=== PATIENT | male | born 1970 | race Hispanic/Latino ===

== ENCOUNTER 2023-03-07 19:11 | Inpatient (IN) | payer SELFPAY ==
[~2023-03-07 19:11] MED LIST: Iopamidol 300 61% 100 ML VIAL FS ONE
[2023-03-07 20:13] LABS: #Eosinphils 0.1 10x3/uL (0.0-0.5); #Monocytes 0.5 10x3/uL (0.0-1.1); #Neutrophils 3.2 10x3/uL (1.5-8.4); %Basophils 0.2 % (0.0-2.0); %Eosinophils 1.7 % (0.0-6.0); %Lymphocytes 20.4 % (18.0-47.0); %Monocytes 9.9 % (0.0-10.0); %Neutrophils 66.5 % (40.0-75.0); Hemoglobin 12.2 g/dL (13.5-17.5); Mean Corpuscular HGB CONC 34.4 g/dL (32.0-36.0); Mean Corpuscular Hemoglobin 29.1 pg (27.0-33.0); Mean Corpuscular Volume 84.7 fl (81.2-95.1); Mean Platelet Volume 11.6 fl (7.4-10.4); Platelet Count 83 10x3/uL (150-450); RBC Distribution Width 12.8 % (11.5-14.5); Red Blood Cell (RBC) Count 4.19 10x6/uL (4.32-5.72); White Blood Cell (WBC) Count 4.8 10x3/uL (3.5-10.5)
[2023-03-07 20:17] LABS: ALT (SGPT) 22 U/L (8-55); AST (SGOT) 19 U/L (5-34); Albumin 2.8 g/dL (3.5-5.0); Alkaline Phosphatase 142 U/L (40-110); Anion Gap 14 mmol/L (10-20); BUN (Urea Nitrogen) 7 mg/dL (8.4-25.7); Bilirubin, Total 1.8 mg/dL (0.2-1.2); Calc. Creatinine Clearance 0 mL/min (70-130); Calcium 8.2 mg/dL (7.8-10.44); Carbon Dioxide 18 mmol/L (22-29); Chloride 101 mmol/L (98-107); Estimated GFR 113; Globulin 3.4 g/dL (2.4-3.5); Potassium 4.2 mmol/L (3.5-5.1); Protein, Total 6.2 g/dL (6.0-8.3); Sodium 129 mmol/L (136-145)
[2023-03-07] MEDS ORDERED: Morphine 4 MG/ML VIAL ONE (20:17)
[2023-03-07] MEDS ORDERED: Cefepime 2 GM VIAL ONE (20:18)
[2023-03-07] MEDS ORDERED: Vancomycin 1 GM VIAL ONE (20:18)
[2023-03-07 20:20] LABS: Glucose 511 mg/dL (70-105)
[2023-03-07] MEDS ORDERED: Lidocaine 1% w/Epinephrine 1:100K 20 ML VIAL FS SCH (20:30)
[2023-03-07 20:51] LABS: Large Platelets SLIGHT (None Seen); Platelet Adequacy Comment Appears Decreased
[2023-03-07 20:52] LABS: RBC Morph Comment Within Normal Limits
[2023-03-07 21:05] LABS: Actual Bicarbonate (HCO3v) 23.6 mEq/L (22-28); Base Excess -0.4 mEq/L (-2 - +2); Calcium, Ionized (venous) 1.05 mmol/L (1.16-1.32); Chloride (VBG) 103 mmol/L (98-106); Hematocrit-VBG 39 % (42.0-52.0); Hemoglobin (Hb) 13.4 g/dL (13.1-17.2); Potassium (VBG) 3.83 mmol/L (3.70-5.30); Puncture Site Other Site; RapidComm Collect By CBN; Sodium 134.1 mmol/L (133-146); pH (venous) 7.424 (7.32-7.43)
[2023-03-07] MEDS ORDERED: Boostrix 0.5 ML (Tdap) VIAL (>/=7 yrs of age) ONE (21:32)
[2023-03-07] MEDS ORDERED: HumaLOG 300 UNITS/3 ML VIAL SC SCH (21:45)
[2023-03-07] MEDS ORDERED: Calcium Carbonate 500 MG ChewTAB PO PRN (21:52)
[2023-03-07] MEDS ORDERED: Ondansetron PF 4 MG/2 ML Vial IVP PRN (21:52)
[2023-03-07] MEDS ORDERED: Senokot S 8.6-50 MG TAB PO PRN (21:52)
[2023-03-07] MEDS ORDERED: Dextrose 5% in Water 1,000 ML IV PRN (21:52)
[2023-03-07] MEDS ORDERED: Glucagon 1 MG/ML KIT IM PRN (21:52)
[2023-03-07] MEDS ORDERED: Guaifenesin DM 100-10/5 ML UDCUP PO PRN (21:52)
[2023-03-07] MEDS ORDERED: Dextrose 50% Abboject 50 ML SYRINGE SLOW IVP PRN (21:52)
[2023-03-07] MEDS ORDERED: Acetaminophen 325 MG TAB PO PRN (21:52)
[2023-03-08] MEDS: Lactated Ringer's 1,000 ML IV SCH ×4 (02:15→22:32)
[2023-03-08 05:55] LABS: #Eosinphils 0.1 10x3/uL (0.0-0.5); #Monocytes 0.5 10x3/uL (0.0-1.1); #Neutrophils 3.2 10x3/uL (1.5-8.4); %Basophils 0.2 % (0.0-2.0); %Lymphocytes 25.2 % (18.0-47.0); %Neutrophils 63.2 % (40.0-75.0); Hemoglobin 11.9 g/dL (13.5-17.5); Mean Corpuscular HGB CONC 34.7 g/dL (32.0-36.0); Mean Corpuscular Hemoglobin 29.4 pg (27.0-33.0); Mean Corpuscular Volume 84.7 fl (81.2-95.1); Mean Platelet Volume 10.5 fl (7.4-10.4); Platelet Count 97 10x3/uL (150-450); RBC Distribution Width 12.9 % (11.5-14.5); Red Blood Cell (RBC) Count 4.05 10x6/uL (4.32-5.72); White Blood Cell (WBC) Count 5.1 10x3/uL (3.5-10.5)
[2023-03-08 05:56] LABS: Anion Gap 14 mmol/L (10-20); BUN (Urea Nitrogen) 6 mg/dL (8.4-25.7); CK (CPK) 36 U/L (30-200); Calc. Creatinine Clearance 123 mL/min (70-130); Calcium 7.7 mg/dL (7.8-10.44); Carbon Dioxide 22 mmol/L (22-29); Chloride 104 mmol/L (98-107); Estimated GFR 117; Glucose 177 mg/dL (70-105); Potassium 3.5 mmol/L (3.5-5.1); Sodium 136 mmol/L (136-145)
[2023-03-08 06:13] LABS: Platelet Adequacy Comment Appears Decreased; RBC Morph Comment Within Normal Limits
[2023-03-08] MEDS: HYDROcodone/Acetaminophen 5/325 mg Tablet PO PRN ×2 (07:12→22:12)
[2023-03-08] MEDS: Nicotine 14 MG PATCH TD SCH ×2 (07:19→22:40)
[2023-03-08] MEDS: metFORMIN 500 MG TAB PO SCH (08:51)
[2023-03-08] MEDS: Cefepime 1 GM in Sodium Chloride 0.9% 100 ML IVPB SCH ×2 (08:52→22:08)
[2023-03-08] MEDS: HumaLOG 300 UNITS/3 ML VIAL SC PRN ×3 (08:52→22:11)
[2023-03-08] MEDS ORDERED: Vancomycin 1 GM in Premix Bag 1 BAG IVPB SCH (09:00)
[2023-03-08] MEDS: Vancomycin HCl 1 GM in Sodium Chloride 0.9% 250 ML 250 ML IVPB SCH ×2 (09:00→22:09)
[2023-03-08 12:20] LABS: Hemoglobin A1c Greater than 14.0 % (4.0-6.0)
[2023-03-08] MEDS ORDERED: HYDROcodone/Acetaminophen 5/325 mg Tablet PO SCH (12:30)
[2023-03-09 04:39] LABS: Hemoglobin 11.8 g/dL (13.5-17.5); MDiff Complete? YES; Mean Corpuscular HGB CONC 33.7 g/dL (32.0-36.0); Mean Corpuscular Hemoglobin 28.5 pg (27.0-33.0); Mean Corpuscular Volume 84.5 fl (81.2-95.1); Mean Platelet Volume 10.3 fl (7.4-10.4); Platelet Count 93 10x3/uL (150-450); RBC Distribution Width 12.5 % (11.5-14.5); Red Blood Cell (RBC) Count 4.14 10x6/uL (4.32-5.72); White Blood Cell (WBC) Count 3.2 10x3/uL (3.5-10.5)
[2023-03-09 04:43] LABS: Anion Gap 13 mmol/L (10-20); BUN (Urea Nitrogen) 5 mg/dL (8.4-25.7); Calc. Creatinine Clearance 140 mL/min (70-130); Calcium 7.8 mg/dL (7.8-10.44); Carbon Dioxide 21 mmol/L (22-29); Chloride 109 mmol/L (98-107); Estimated GFR 122; Glucose 248 mg/dL (70-105); Potassium 3.6 mmol/L (3.5-5.1); Sodium 139 mmol/L (136-145)
[2023-03-09 06:19] LABS: Eosinophils 5 % (0-10); Lymphocytes 32 % (21-51); Monocytes 9 % (0-10); Neutrophil 47 % (42-75); Reactive Lymphocytes 7 % (0-10)
[2023-03-09 06:23] LABS: Hypochromia SLIGHT = 6-15 cells (100X) (0-5/hpf); Macrocytosis SLIGHT = 6-15 cells (100X) (0-5/hpf); Ovalocytes SLIGHT = 2-5 cells (100X) (0-1/hpf)
[2023-03-09 06:24] LABS: Platelet Adequacy Comment Appears Decreased
[2023-03-09] MEDS: Cefepime 1 GM in Sodium Chloride 0.9% 100 ML IVPB SCH ×2 (08:33→19:59)
[2023-03-09] MEDS: metFORMIN 500 MG TAB PO SCH (08:33)
[2023-03-09 08:35] LABS: Vancomycin, Trough 5.1 ug/mL
[2023-03-09] MEDS: Vancomycin HCl 1 GM in Sodium Chloride 0.9% 250 ML 250 ML IVPB SCH ×3 (08:39→17:20)
[2023-03-09] MEDS ORDERED: Lantus 1000 UNITS/10 ML VIAL SC SCH (09:00)
[2023-03-09] MEDS: HYDROcodone/Acetaminophen 5/325 mg Tablet PO PRN ×2 (10:45→19:58)
[2023-03-09] MEDS: HumaLOG 300 UNITS/3 ML VIAL SC PRN ×3 (12:00→22:12)
[2023-03-09] MEDS ORDERED: HYDROcodone/Acetaminophen 5/325 mg Tablet ONE (15:41)
[2023-03-09] MEDS: Nicotine 14 MG PATCH TD SCH (22:19)
[2023-03-10] MEDS: Vancomycin HCl 1 GM in Sodium Chloride 0.9% 250 ML 250 ML IVPB SCH ×2 (01:06→09:51)
[2023-03-10] MEDS: HYDROcodone/Acetaminophen 5/325 mg Tablet PO PRN (04:35)
[2023-03-10] MEDS: HumaLOG 300 UNITS/3 ML VIAL SC PRN ×5 (04:43→20:29)
[2023-03-10 05:26] LABS: #Eosinphils 0.1 10x3/uL (0.0-0.5); #Monocytes 0.4 10x3/uL (0.0-1.1); #Neutrophils 1.7 10x3/uL (1.5-8.4); %Basophils 0.6 % (0.0-2.0); %Eosinophils 3.5 % (0.0-6.0); %Lymphocytes 33.9 % (18.0-47.0); %Monocytes 11.2 % (0.0-10.0); %Neutrophils 50.2 % (40.0-75.0); Hemoglobin 12.4 g/dL (13.5-17.5); Mean Corpuscular HGB CONC 33.9 g/dL (32.0-36.0); Mean Corpuscular Volume 85.7 fl (81.2-95.1); Platelet Count 125 10x3/uL (150-450); Red Blood Cell (RBC) Count 4.27 10x6/uL (4.32-5.72); White Blood Cell (WBC) Count 3.4 10x3/uL (3.5-10.5)
[2023-03-10 05:38] LABS: Anion Gap 12 mmol/L (10-20); BUN (Urea Nitrogen) 6 mg/dL (8.4-25.7); Calc. Creatinine Clearance 123 mL/min (70-130); Calcium 8.2 mg/dL (7.8-10.44); Carbon Dioxide 23 mmol/L (22-29); Chloride 108 mmol/L (98-107); Estimated GFR 117; Glucose 256 mg/dL (70-105); Potassium 3.6 mmol/L (3.5-5.1); Sodium 139 mmol/L (136-145)
[2023-03-10] MEDS ORDERED: HumaLOG 300 UNITS/3 ML VIAL SC PRN (08:11)
[2023-03-10] MEDS: metFORMIN 500 MG TAB PO SCH (08:28)
[2023-03-10 08:29] LABS: Vancomycin, Trough 6.9 ug/mL
[2023-03-10] MEDS: Cefepime 1 GM in Sodium Chloride 0.9% 100 ML IVPB SCH ×2 (08:29→20:30)
[2023-03-10] MEDS: Lantus 1000 UNITS/10 ML VIAL SC SCH (08:30)
[2023-03-10 10:52] VITALS: BMI 21.9
[2023-03-10] MEDS: Clindamycin/D5W 600 MG in Premix Bag 1 BAG IVPB SCH ×2 (14:51→21:50)
[2023-03-10] MEDS: Nicotine 14 MG PATCH TD SCH (21:53)
[2023-03-11] MEDS: Clindamycin/D5W 600 MG in Premix Bag 1 BAG IVPB SCH ×2 (05:19→13:07)
[2023-03-11 06:55] LABS: Anion Gap 15 mmol/L (10-20); BUN (Urea Nitrogen) 8 mg/dL (8.4-25.7); Calc. Creatinine Clearance 123 mL/min (70-130); Calcium 8.5 mg/dL (7.8-10.44); Carbon Dioxide 21 mmol/L (22-29); Chloride 108 mmol/L (98-107); Estimated GFR 117; Glucose 152 mg/dL (70-105); Potassium 3.8 mmol/L (3.5-5.1); Sodium 140 mmol/L (136-145)
[2023-03-11 07:03] LABS: #Eosinphils 0.1 10x3/uL (0.0-0.5); #Monocytes 0.5 10x3/uL (0.0-1.1); %Basophils 0.5 % (0.0-2.0); %Eosinophils 2.7 % (0.0-6.0); %Lymphocytes 33.7 % (18.0-47.0); %Monocytes 12.8 % (0.0-10.0); %Neutrophils 50.1 % (40.0-75.0); Hemoglobin 12.8 g/dL (13.5-17.5); Mean Corpuscular HGB CONC 33.2 g/dL (32.0-36.0); Mean Corpuscular Hemoglobin 28.3 pg (27.0-33.0); Mean Corpuscular Volume 85.2 fl (81.2-95.1); Mean Platelet Volume 10.4 fl (7.4-10.4); Platelet Count 143 10x3/uL (150-450); RBC Distribution Width 12.9 % (11.5-14.5); Red Blood Cell (RBC) Count 4.52 10x6/uL (4.32-5.72); White Blood Cell (WBC) Count 4.1 10x3/uL (3.5-10.5)
[2023-03-11] MEDS: Lantus 1000 UNITS/10 ML VIAL SC SCH (08:43)
[2023-03-11] MEDS: metFORMIN 500 MG TAB PO SCH (08:44)
[2023-03-11] MEDS: Cefepime 1 GM in Sodium Chloride 0.9% 100 ML IVPB SCH (08:44)
[2023-03-11] MEDS: HumaLOG 300 UNITS/3 ML VIAL SC PRN (12:25)
[2023-03-11] MEDS: HYDROcodone/Acetaminophen 5/325 mg Tablet PO PRN (16:56)
[2023-03-11 17:48] VITALS: BP 108/60; TEMP 98.7
== END 2023-03-11 18:50 | disposition home or self-care (01) | DRG 603 ==
LOC: CSHERS 19:11 → CSHTELE 03-08 00:42
PROVIDERS: ADMIT Student in an Organized Health Care Education/Training Program; ATTEND Hospitalist
PROC: 0J9N0ZZ Drainage of Right Lower Leg Subcutaneous Tissue and Fascia, Open Approach (ICD-10-PCS; principal; 2023-03-08)
DX: L02.415 Cutaneous abscess of right lower limb (principal); E87.1 Hypo-osmolality and hyponatremia; E11.65 Type 2 diabetes mellitus with hyperglycemia; L03.115 Cellulitis of right lower limb; F17.210 Nicotine dependence, cigarettes, uncomplicated; D64.9 Anemia, unspecified; D69.6 Thrombocytopenia, unspecified; E86.0 Dehydration; B95.62 Methicillin resistant Staphylococcus aureus infection as the cause of diseases classified elsewhere
CPT/HCPCS: 10060; 36415; 36416; 80048; 80053; 80202; 82010; 82550; 82607; 82805; 83036; 83605; 85025; 87040; 87070; 87077; 87186; 87205; 90471; 90715; 96361; 96365; 96366; 96367; 96375; 97139; J0692; J1650; J1815; J2270; J3370; J3490; J7050; J7120; Q9967

== ENCOUNTER 2023-07-03 15:48 | Inpatient (IN) | payer SELFPAY ==
[2023-07-03 18:31] LABS: #Eosinphils 0.1 10x3/uL (0.0-0.5); #Monocytes 0.6 10x3/uL (0.0-1.1); #Neutrophils 3.7 10x3/uL (1.5-8.4); %Basophils 0.5 % (0.0-2.0); %Eosinophils 1.9 % (0.0-6.0); %Lymphocytes 24.2 % (18.0-47.0); %Monocytes 10.3 % (0.0-10.0); %Neutrophils 62.8 % (40.0-75.0); Hematocrit 38.1 % (38.8-50.0); Hemoglobin 13.4 g/dL (13.5-17.5); Mean Corpuscular HGB CONC 35.2 g/dL (32.0-36.0); Mean Corpuscular Hemoglobin 29.3 pg (27.0-33.0); Mean Corpuscular Volume 83.2 fl (81.2-95.1); Mean Platelet Volume 13.6 fl (7.4-10.4); Platelet Count 65 10x3/uL (150-450); RBC Distribution Width 12.4 % (11.5-14.5); Red Blood Cell (RBC) Count 4.58 10x6/uL (4.32-5.72); White Blood Cell (WBC) Count 5.8 10x3/uL (3.5-10.5)
[2023-07-03 18:41] LABS: ALT (SGPT) 21 U/L (8-55); AST (SGOT) 19 U/L (5-34); Albumin 3.5 g/dL (3.5-5.0); Alkaline Phosphatase 144 U/L (40-110); Anion Gap 15 mmol/L (10-20); BUN (Urea Nitrogen) 11 mg/dL (8.4-25.7); Bilirubin, Total 1.8 mg/dL (0.2-1.2); Calc. Creatinine Clearance 0 mL/min (70-130); Calcium 8.9 mg/dL (7.8-10.44); Carbon Dioxide 22 mmol/L (22-29); Chloride 103 mmol/L (98-107); Estimated GFR 110; Globulin 3.8 g/dL (2.4-3.5); Glucose 339 mg/dL (70-105); Potassium 3.8 mmol/L (3.5-5.1); Protein, Total 7.3 g/dL (6.0-8.3); Sodium 136 mmol/L (136-145)
[2023-07-03 19:27] LABS: Platelet Adequacy Comment Platelets Decreased; RBC Morph Comment Within Normal Limits
[2023-07-03] MEDS ORDERED: Cefepime 2 GM VIAL ONE (19:56)
[2023-07-03] MEDS ORDERED: Vancomycin 1 GM VIAL ONE (19:56)
[2023-07-03] MEDS ORDERED: Dextrose 50% Abboject 50 ML SYRINGE SLOW IVP PRN (22:40)
[2023-07-03] MEDS ORDERED: HYDROcodone/Acetaminophen 5/325 mg Tablet PO PRN (22:40)
[2023-07-03] MEDS ORDERED: Dextrose 5% in Water 1,000 ML IV PRN (22:40)
[2023-07-03] MEDS ORDERED: Glucagon 1 MG/ML KIT IM PRN (22:40)
[2023-07-03] MEDS ORDERED: Senokot S 8.6-50 MG TAB PO PRN (22:40)
[2023-07-03] MEDS ORDERED: Ondansetron PF 4 MG/2 ML Vial IVP PRN (22:40)
[2023-07-03] MEDS ORDERED: Guaifenesin DM 100-10/5 ML UDCUP PO PRN (22:40)
[2023-07-03] MEDS ORDERED: Acetaminophen 325 MG TAB PO PRN (22:40)
[2023-07-03] MEDS ORDERED: Calcium Carbonate 500 MG ChewTAB PO PRN (22:40)
[2023-07-03] MEDS ORDERED: Lactated Ringer's 500 ML IV SCH (23:00)
[2023-07-03] MEDS ORDERED: Lantus 1000 UNITS/10 ML VIAL SC SCH (23:59)
[2023-07-04 01:34] VITALS: BMI 23.3
[2023-07-04] MEDS: HumaLOG 300 UNITS/3 ML VIAL SC PRN ×3 (02:08→21:03)
[2023-07-04] MEDS ORDERED: FLU VACC QS2023-24(6MOS UP)/PF 60 MCG/0.5 ML SYRINGE IM ONE (04:15)
[2023-07-04 06:01] LABS: #Eosinphils 0.1 10x3/uL (0.0-0.5); #Monocytes 0.6 10x3/uL (0.0-1.1); #Neutrophils 3.3 10x3/uL (1.5-8.4); %Basophils 0.6 % (0.0-2.0); %Eosinophils 2.3 % (0.0-6.0); %Lymphocytes 22.7 % (18.0-47.0); %Monocytes 10.9 % (0.0-10.0); %Neutrophils 63.3 % (40.0-75.0); Hematocrit 36.1 % (38.8-50.0); Hemoglobin 12.4 g/dL (13.5-17.5); Mean Corpuscular HGB CONC 34.3 g/dL (32.0-36.0); Mean Corpuscular Volume 84.5 fl (81.2-95.1); Mean Platelet Volume 12.4 fl (7.4-10.4); Platelet Count 65 10x3/uL (150-450); RBC Distribution Width 12.8 % (11.5-14.5); Red Blood Cell (RBC) Count 4.27 10x6/uL (4.32-5.72); White Blood Cell (WBC) Count 5.3 10x3/uL (3.5-10.5)
[2023-07-04] MEDS: Vancomycin 1 GM in Sodium Chloride 0.9% 250 ML 250 ML IVPB SCH ×3 (06:02→22:26)
[2023-07-04 06:11] LABS: CRP (Inflammatory) 4.2 mg/dL (= or < 0.5)
[2023-07-04 07:44] LABS: Anion Gap 12 mmol/L (10-20); BUN (Urea Nitrogen) 9 mg/dL (8.4-25.7); Calc. Creatinine Clearance 115 mL/min (70-130); Calcium 8.2 mg/dL (7.8-10.44); Carbon Dioxide 20 mmol/L (22-29); Chloride 108 mmol/L (98-107); Estimated GFR 115; Glucose 290 mg/dL (70-105); Potassium 3.4 mmol/L (3.5-5.1); Sodium 137 mmol/L (136-145)
[2023-07-04] MEDS: Cefepime 2 GM in Sodium Chloride 0.9% 100 ML IVPB SCH ×2 (09:38→21:01)
[2023-07-04] MEDS: metFORMIN 500 MG TAB PO SCH ×2 (09:39→17:13)
[2023-07-04] MEDS: Lisinopril 2.5 MG TAB PO SCH (09:44)
[2023-07-04] MEDS: Alogliptin 25 MG TAB PO SCH (09:44)
[2023-07-04] MEDS: Lantus 1000 UNITS/10 ML VIAL SC SCH (09:47)
[2023-07-04 12:45] LABS: Hemoglobin A1c 11.1 % (4.0-6.0)
[2023-07-04] MEDS: HYDROcodone/Acetaminophen 5/325 mg Tablet PO PRN (16:27)
[2023-07-04 21:17] LABS: Vancomycin, Trough 8.2 ug/mL
[2023-07-05 05:35] LABS: #Eosinphils 0.1 10x3/uL (0.0-0.5); #Monocytes 0.4 10x3/uL (0.0-1.1); #Neutrophils 2.7 10x3/uL (1.5-8.4); %Basophils 0.5 % (0.0-2.0); %Eosinophils 3.1 % (0.0-6.0); %Lymphocytes 18.1 % (18.0-47.0); %Monocytes 9.9 % (0.0-10.0); %Neutrophils 68.1 % (40.0-75.0); Hematocrit 37.8 % (38.8-50.0); Mean Corpuscular HGB CONC 34.4 g/dL (32.0-36.0); Mean Corpuscular Hemoglobin 28.9 pg (27.0-33.0); Mean Platelet Volume 12.6 fl (7.4-10.4); Platelet Count 74 10x3/uL (150-450); RBC Distribution Width 12.5 % (11.5-14.5); White Blood Cell (WBC) Count 3.9 10x3/uL (3.5-10.5)
[2023-07-05 05:37] LABS: Anion Gap 14 mmol/L (10-20); BUN (Urea Nitrogen) 11 mg/dL (8.4-25.7); Calc. Creatinine Clearance 121 mL/min (70-130); Calcium 8.5 mg/dL (7.8-10.44); Carbon Dioxide 21 mmol/L (22-29); Chloride 107 mmol/L (98-107); Estimated GFR 117; Glucose 164 mg/dL (70-105); Potassium 3.7 mmol/L (3.5-5.1); Sodium 138 mmol/L (136-145)
[2023-07-05] MEDS: HYDROcodone/Acetaminophen 5/325 mg Tablet PO PRN ×2 (06:32→10:28)
[2023-07-05] MEDS: HumaLOG 300 UNITS/3 ML VIAL SC PRN ×4 (06:33→23:45)
[2023-07-05] MEDS: Vancomycin 1 GM in Sodium Chloride 0.9% 250 ML 250 ML IVPB SCH ×3 (06:35→21:17)
[2023-07-05] MEDS: Alogliptin 25 MG TAB PO SCH (08:42)
[2023-07-05] MEDS: Lisinopril 2.5 MG TAB PO SCH (08:42)
[2023-07-05] MEDS: metFORMIN 500 MG TAB PO SCH ×2 (08:44→17:37)
[2023-07-05] MEDS: Cefepime 2 GM in Sodium Chloride 0.9% 100 ML IVPB SCH ×2 (08:51→20:04)
[2023-07-05] MEDS: Lantus 1000 UNITS/10 ML VIAL SC SCH (08:54)
[2023-07-06] MEDS: HYDROcodone/Acetaminophen 5/325 mg Tablet PO PRN (04:59)
[2023-07-06] MEDS: HumaLOG 300 UNITS/3 ML VIAL SC PRN (05:00)
[2023-07-06 05:09] LABS: Vancomycin, Trough 8.2 ug/mL
[2023-07-06] MEDS ORDERED: VANCOMYCIN 1.25 GM/250 ML BAG 1.25 GM in Premix 1 BAG IVPB SCH (06:00)
[2023-07-06 08:53] VITALS: BP 112/70; TEMP 98.1
[2023-07-06] MEDS: metFORMIN 500 MG TAB PO SCH (09:08)
[2023-07-06] MEDS: Lisinopril 2.5 MG TAB PO SCH (09:08)
[2023-07-06] MEDS: Alogliptin 25 MG TAB PO SCH (09:09)
[2023-07-06] MEDS: Lantus 1000 UNITS/10 ML VIAL SC SCH (09:09)
[2023-07-06] MEDS: Cefepime 2 GM in Sodium Chloride 0.9% 100 ML IVPB SCH (09:09)
== END 2023-07-06 13:21 | disposition home or self-care (01) | DRG 638 ==
LOC: CSHERS 15:48 → CSHERHOLD 21:03 → CSHTELE 07-04 01:28 → OBSVTOIN 07-04 14:48
PROVIDERS: ADMIT Student in an Organized Health Care Education/Training Program; ATTEND Family Medicine
DX: E11.628 Type 2 diabetes mellitus with other skin complications (principal); L02.415 Cutaneous abscess of right lower limb; L03.115 Cellulitis of right lower limb; Z79.4 Long term (current) use of insulin; Z78.9 Other specified health status; D69.6 Thrombocytopenia, unspecified; E11.65 Type 2 diabetes mellitus with hyperglycemia; F17.210 Nicotine dependence, cigarettes, uncomplicated
CPT/HCPCS: 36415; 36416; 80048; 80053; 80202; 82550; 83036; 85025; 86140; 87040; 87070; 87077; 87186; 87205; 96365; 96372; 96374; 96375; 97139; G0378; J0692; J1650; J1815; J3370; J3490; J7050; J7120